=== PATIENT | male | born 1995 | race Caucasian/White ===

== ENCOUNTER → 2019-09-06 14:48 | Outpatient (CLI) | payer SELFPAY | DX: Z23 Encounter for immunization (principal) | CPT/HCPCS: 90471; 90686 ==

== ENCOUNTER → 2020-08-28 04:01 | Outpatient (CLI) | payer OTHER, SELFPAY | PROVIDERS: Referring Provider Internal Medicine; Visit Provider Internal Medicine | DX: Z23 Encounter for immunization (principal) | CPT/HCPCS: 90471; 90686 ==

== ENCOUNTER → 2020-10-18 12:09 | Outpatient (CLI) | payer SELFPAY ==
[2020-10-18 12:41] LABS: COVID19 -Nasal RAPID Negative (Negative)
== END ==
PROVIDERS: Visit Provider Physician Assistant
DX: Z11.59 Encounter for screening for other viral diseases (principal)
CPT/HCPCS: 87635

== ENCOUNTER → 2020-11-21 07:30 | Outpatient (CLI) | payer OTHER, SELFPAY ==
[2020-11-21] MEDS: COVID-19 VACC(MODERNA-1)/PF 100 MCG/0.5 ML VIAL IM (07:47)
== END ==
PROVIDERS: Visit Provider Internal Medicine
DX: Z23 Encounter for immunization (principal)
CPT/HCPCS: 0011A; 91301

== ENCOUNTER → 2020-12-18 07:34 | Outpatient (CLI) | payer OTHER, SELFPAY ==
[2020-12-18] MEDS: COVID-19 VACC #2, MRNA(MOD) 100 MCG/0.5 ML VIAL IM (07:41)
== END ==
PROVIDERS: Visit Provider Internal Medicine
DX: Z23 Encounter for immunization (principal)
CPT/HCPCS: 0012A; 91301

== ENCOUNTER 2021-05-08 20:23 | Emergency (ER) | payer OTHER, SELFPAY ==
[2021-05-08 20:29] VITALS: BP 148/75; PULSE 89; RESP 18; TEMP 36.7; O2SAT 98
[2021-05-08] MEDS: TET,DIPH,PERTUSS(ACELL),VAC/PF 0.5 ML SYRINGE IM (21:24)
[2021-05-08] MEDS: BACITRACIN OINT 0.9 GM PCKT 1 APPLIC TOP (21:30)
[2021-05-08] MEDS: LIDO 1%/SOD BICARB 8.4% (10ML) 10 ML SYRINGE INJ (21:31)
--- NOTE | 2021-05-08 21:35 | ED_ITS ---
HPI - Wound/Laceration <PENNY Barboza - Last Filed: 05/08/21 21:43> General Chief Complaint: Wound/Laceration Stated Complaint: LEFT INDEX FINGER CUT Time Seen by Provider: 05/08/21 21:02 Source: patient Mode of arrival: Ambulatory Limitations: no limitations History of Present Illness HPI narrative: This is a 26-year-old male, nonsmoker, who has no pertinent medical history presents to ED with 2 cm laceration in radial aspect in base of left index finger. Right dominant hand. No active bleeding. Patient reports laceration from steak knife before coming into ED. patient reports intact sensation and is able to actively flex, extend, laterally deviate affected finger without difficulty. Unsure of last tetanus vaccination. Review of Systems <PENNY Barboza - Last Filed: 05/08/21 21:43> Review of Systems Narrative: General: Denies fever, chills, fatigue, malaise, sweats. Respiratory: Denies dyspnea, cough, wheezing, hemoptysis, sputum. Cardiovascular: Denies chest pain, palpitations, orthopnea, edema. Musculoskeletal: Denies weakness, joint pain or bony pain. Skin: See HPI Patient History <PENNY Barboza - Last Filed: 05/08/21 21:43> Medical History (Updated 05/08/21 @ 21:40 by PENNY Barboza) Family history non-contributory No significant past medical history Social History (Updated 05/08/21 @ 21:40 by PENNY Barboza) Smoking Status: Never smoker substance use type: does not use Smoking Status: Unknown if ever smoked Exam <PENNY Barboza - Last Filed: 05/08/21 21:43> Narrative Exam Narrative: General appearance: well developed, well nourished, in no acute distress. Head: normocephalic, atraumatic, no scalp lesions, non-tender. ENT: Hearing grossly intact. Nose without bleeding, purulent discharge. Airway patent. Neck/Thyroid: neck supple, full range of motion, no visible masses or meningeal signs. No JVD, non-tender without lymphadenopathy. Skin: 2mc laceration in base of left radial aspect of finger. Warm and dry and appropriate color for ethnicity. Heart: no clubbing, no cyanosis, no edema. Lungs: Breathing even and unlabored. No stridor. No accessory muscles used. Able to speak in full sentences. Chest: normal shape and expansion. Abdomen: non-obese, non-distended. Neurologic: alert and oriented. Cognitive exam, [employer] and PNS grossly intact on informal exam. Psych: good eye contact, normal affect. Initial Vital Signs Initial Vital Signs: Vital Signs Temperature 98.1 F 05/08/21 20:29 Pulse Rate 89 05/08/21 20:29 Respiratory Rate 18 05/08/21 20:29 Blood Pressure 148/75 H 05/08/21 20:29 Pulse Oximetry 98 05/08/21 20:29 Extrem General: full ROM, capillary refill normal, normal exam except as noted and no joint enlargement Left upper extremity: hand Details: normal capillary refill, neuromotor exam normal, neurosensory exam normal, normal ROM of fingers, no swelling and laceration <Saige Villegas MD - Last Filed: 05/09/21 03:33> Initial Vital Signs Initial Vital Signs: Vital Signs Temperature 98.1 F 05/08/21 20:29 Pulse Rate 89 05/08/21 20:29 Respiratory Rate 18 05/08/21 20:29 Blood Pressure 148/75 H 05/08/21 20:29 Pulse Oximetry 98 05/08/21 20:29 Procedures <PENNY Barboza - Last Filed: 05/08/21 21:43> Laceration Repair Laceration 1: Site: hand Side (If applicable): left Size (cm): 2 Description: linear Depth: simple, single layer Local Anesthetic: lidocaine 1% and with bicarb Amount of anesthesia used (mL): 1 Pre-repair: wound explored and irrigated extensively Size (cm): 4-0 Number of sutures: 4 Technique: simple, interrupted Scores <PENNY Barboza - Last Filed: 05/08/21 21:43> GCS Sima coma scale eye opening: Spontaneous Sima coma scale verbal response: Orientated [place] coma scale motor response: Obey commands Sima coma scale total score: 15 Course <PENNY Barboza - Last Filed: 05/08/21 21:43> Orders Ordered: Discontinued Medications Bacitracin (Bacitracin Oint 0.9 Gm Pckt) 1 applic TOP NOW ONE Stop: 05/08/21 21:03 Last Admin: 05/08/21 21:30 Dose: 1 applic Documented by: KEL Diphtheria/Tetanus/Acell Pertussis (Tet,Diph,Pertuss(Acell),Vac/Pf 0.5 Ml Syringe) 0.5 ml IM .ONCE ONE Stop: 05/08/21 20:35 Last Admin: 05/08/21 21:24 Dose: 0.5 ml Documented by: KEL Lidocaine/Sodium Bicarbonate (Lido 1%/Sod Bicarb 8.4% (10ml) 10 Ml Syringe) 10 ml INJ NOW ONE Stop: 05/08/21 21:03 Last Admin: 05/08/21 21:31 Dose: 1 ml Documented by: KEL Vital Signs Vital signs: Vital Signs - 8 hr 05/08/21 20:29 Temperature 98.1 F Pulse Rate 89 Respiratory Rate 18 Blood Pressure 148/75 H Pulse Oximetry 98 <Saige Villegas MD - Last Filed: 05/09/21 03:33> Orders Ordered: Discontinued Medications Bacitracin (Bacitracin Oint 0.9 Gm Pckt) 1 applic TOP NOW ONE Stop: 05/08/21 21:03 Last Admin: 05/08/21 21:30 Dose: 1 applic Documented by: KEL Diphtheria/Tetanus/Acell Pertussis (Tet,Diph,Pertuss(Acell),Vac/Pf 0.5 Ml Syringe) 0.5 ml IM .ONCE ONE Stop: 05/08/21 20:35 Last Admin: 05/08/21 21:24 Dose: 0.5 ml Documented by: KEL Lidocaine/Sodium Bicarbonate (Lido 1%/Sod Bicarb 8.4% (10ml) 10 Ml Syringe) 10 ml INJ NOW ONE Stop: 05/08/21 21:03 Last Admin: 05/08/21 21:31 Dose: 1 ml Documented by: KEL Vital Signs Vital signs: Vital Signs - 8 hr 05/08/21 20:29 Temperature 98.1 F Pulse Rate 89 Respiratory Rate 18 Blood Pressure 148/75 H Pulse Oximetry 98 MDM - Wound/Laceration <PENNY Barboza - Last Filed: 05/08/21 21:43> Differential Diagnosis Differential diagnosis: Likely laceration Medical Records Attestation: I reviewed the patient's medical records. MDM Narrative Medical decision making narrative: Left non dominant hand base of index finger in radial aspect repaired with 4 sutures. Please see procedural note. Discussed wound care at home, wound recheck in 2 days, suture removal in 10-14 days with patient which he verbalized understanding in agreement with the treatment plan. Patient tolerated the procedure well. Discharge Plan Departure Patient Disposition: Home Clinical Impression: Laceration Instructions: DI for Laceration Repair Activity Restrictions/Additional Instructions: You have been diagnosed with [laceration on the base of 2nd finger repaired with 4 sutures. Tdap was updated today.]. What to do: *Take your medications as directed. You can take [id number] Tylenol and or Motrin as needed for discomfort. *Follow up with your primary care provider in 2-3 days, call for an appointment for wound recheck. Let them know you were seen in the ED and that we asked you to be seen in follow up. Suture removal in 10-14 days. Please do not get your wound soaked in the water until suture removal. Keep your dressing intact for next 24 hrs. After then, you could remove your dressing, wash with soap and water. Pat dry with clean paper towel and dress it with antibiotic ointment. You can change dressing as needed and daily. Please monitor for signs and symptoms for infection such as increasing redness, swelling, warmth, pain, fever, purulent discharge. If this occurs, please return to ED or follow up with your primary care physician since your wound may be gotten infected. Please keep your wound clean, dry and intact all times. *Return to ED if you have any new, worsening, or concerning symptoms, such as [signs and symptoms for infection such as increasing redness, swelling, purulent discharge, warmth, fever or increasing pain]. <Saige Villegas MD - Last Filed: 05/09/21 03:33> Cosign ED Attending Cosfionaature Attestation: I was immediately available in the department for consultation throughout this patient's visit. I agree with documentation as above. Saige Villegas MD
== END 2021-05-08 21:41 | disposition home or self-care (01) ==
PROVIDERS: Emergency Provider Nurse Practitioner Family
DX: S61.211A Laceration without foreign body of left index finger without damage to nail, initial encounter (principal); W26.0XXA Contact with knife, initial encounter; Y99.0 Civilian activity done for income or pay
CPT/HCPCS: 12001; 90471; 99283; 90715

== ENCOUNTER → 2021-08-27 | Outpatient (CLI) | payer OTHER, SELFPAY | PROVIDERS: Referring Provider Internal Medicine; Visit Provider Internal Medicine | DX: Z23 Encounter for immunization (principal) | CPT/HCPCS: 90471; 90686 ==

== ENCOUNTER → 2021-10-04 15:18 | Outpatient (CLI) | payer OTHER, SELFPAY ==
[2021-10-04] MEDS: COVID-19 VACC #3, MRNA(MOD) 50 MCG/0.25 ML VIAL IM (15:25)
== END ==
PROVIDERS: Visit Provider Internal Medicine
DX: Z23 Encounter for immunization (principal)
CPT/HCPCS: 0013A; 91301